=== PATIENT | male | born 1955 | race Hispanic/Latino ===

== ENCOUNTER → 2020-10-13 | Outpatient (CLI) | payer MEDICARE ==
[~2020-10-13] MED LIST: IOPAMIDOL 370 MG/ML 200 ML INFUS..BTL INJ ONE; SODIUM CHLORIDE 0.9% 500ML 500 ML ONE
[2020-10-13 15:32] LABS: CREATININE, SERUM 1.26 mg/dL (0.72-1.25)
== END ==
LOC: CT 14:21
PROVIDERS: ATTEND Urology
DX: R31.0 Gross hematuria (principal)
CPT/HCPCS: 36415; 74178; 82565; 84520; 96360; J7040; Q9967

== ENCOUNTER 2020-11-28 10:52 | Inpatient (IN) | payer MEDICARE ==
[2020-11-24 09:34] LABS: BASOPHILS # (AUTO) 0.1 (0.0-0.1); BASOPHILS % 0.6 % (0.0-1.0); EOSINOPHILS # (AUTO) 0.2 (0.0-0.4); EOSINOPHILS % 1.9 % (0.0-6.0); HEMATOCRIT 42.5 % (38.2-49.6); HEMOGLOBIN 14.4 g/dL (14.0-18.0); LYMPHOCYTES # (AUTO) 1.4 (1.0-3.2); LYMPHOCYTES % 17.6 % (18.0-39.1); MEAN CORPUSCULAR HEMOGLOBIN 29.6 pg (28-32); MEAN CORPUSCULAR HGB CONC 33.9 g/dL (31-35); MEAN CORPUSCULAR VOLUME 87.3 fL (81-99); MONOCYTES # (AUTO) 0.8 (0.2-0.8); MONOCYTES % 10.2 % (4.4-11.3); NEUTROPHILS # (AUTO) 5.5 (2.1-6.9); NEUTROPHILS % 69.2 % (38.7-80.0); PLATELET COUNT 277 x10e3/uL (140-360); RED BLOOD COUNT 4.87 x10e6/uL (4.3-5.7); RED CELL DISTRIBUTION WIDTH 12.7 % (11.7-14.4)
[2020-11-24 09:57] LABS: ALBUMIN 3.7 g/dL (3.5-5.0); ALBUMIN/GLOBULIN RATIO 1.2 (0.8-2.0); ANION GAP 13.8 mmol/L (8-16); CREATININE, SERUM 1.29 mg/dL (0.72-1.25); POTASSIUM 3.8 mmol/L (3.5-5.1)
[2020-11-28] VITALS (7 sets, daily range): BP systolic 140–163; BP diastolic 81–87
[~2020-11-28] VITALS: Ht 172.7 cm; Wt 77.1 kg
[~2020-11-28 10:52] MED LIST changes: +ASPIRIN81 MG PO; +AVODART0.5 MG PO; +BYSTOLIC5 MG PO; +CINNAMON500 MG PO; +FLOMAX0.4 MG PO; +GLIMEPIRIDE2 MG PO; -IOPAMIDOL 370 MG/ML 200 ML INFUS..BTL INJ ONE; +JANUMET XR 1001 EACH PO; +MULTI-VITAMIN1 EACH PO; -SODIUM CHLORIDE 0.9% 500ML 500 ML ONE; +TRIBENZOR 20-51 EACH PO; +VIT C PO
[2020-11-28] MEDS ORDERED: SODIUM CHLORIDE 0.9% 50ML 100 ML ONE (11:13)
[2020-11-28] MEDS ORDERED: TUMERIC PO (11:17)
[2020-11-28] MEDS ORDERED: BLACK ELDERBER1 EACH PO (11:17)
[2020-11-28] MEDS ORDERED: VITAMIN B122500 MCG PO (11:17)
[2020-11-28] MEDS ORDERED: MANNITOL 25% 12.5GM/50ML 50 ML ONE (11:32)
[2020-11-28] MEDS ORDERED: FENTANYL CITRATE/PF 100MCG/2 ML INJ ONE ×2 (12:28→15:35)
[2020-11-28] MEDS ORDERED: MIDAZOLAM HCL 2 MG/2 ML VIAL ONE (12:28)
[2020-11-28] MEDS ORDERED: KETAMINE HCL INJ 50 MG/ML 10 ML VIAL ONE (12:28)
[2020-11-28] MEDS ORDERED: POVIDONE IODINE 0.05% 0.05 % ML PO ONE (12:42)
[2020-11-28] MEDS ORDERED: VECURONIUM BROMIDE FOR INJ 20 MG VIAL ONE (12:42)
[2020-11-28] MEDS ORDERED: ROCURONIUM BROMIDE 10 MG/ML 5ML VIAL IV ONE (12:42)
[2020-11-28] MEDS ORDERED: PROPOFOL IV EMULSION 10 MG/ML 20 ML VIAL ONE (12:42)
[2020-11-28] MEDS ORDERED: SEVOFLURANE INHAL SOLN 250 ML PEN BTL ONE (12:42)
[2020-11-28] MEDS ORDERED: ONDANSETRON HCL INJ 2MG/ML 2ML 2 MG/ML VIAL ONE (12:42)
[2020-11-28] MEDS ORDERED: LIDOCAINE HCL 2% JELLY 5 ML TUBE ONE (12:42)
[2020-11-28] MEDS ORDERED: DEXAMETHASONE SOD PHOS INJ 4 MG/ML VIAL ONE (12:42)
[2020-11-28] MEDS ORDERED: ACETAMINOPHEN 1000 MG/100 ML 100 ML IV ONE (14:10)
[2020-11-28] MEDS ORDERED: ACETAMINOPHEN 1000 MG/100 ML 0 ML IV ONE (14:10)
[2020-11-28] MEDS ORDERED: SUGAMMADEX SODIUM 200 MG/2 ML VIAL IV ONE (14:10)
[2020-11-28] MEDS ORDERED: ONDANSETRON HCL INJ 2MG/ML 2ML 2 MG/ML VIAL IV PRN ×2 (15:15→22:00)
[2020-11-28] MEDS ORDERED: MORPHINE SULFATE 1 MG/ML 30ML PCA IV PRN (15:15)
[2020-11-28] MEDS ORDERED: NALOXONE HCL INJ 0.4 MG/ML AMP IV PRN ×2 (15:15→17:30)
[2020-11-28] MEDS ORDERED: DIPHENHYDRAMINE HCL INJ 50 MG/ML VIAL IM PRN (15:15)
[2020-11-28 15:54] LABS: BASOPHILS # (AUTO) 0.1 (0.0-0.1); BASOPHILS % 0.3 % (0.0-1.0); EOSINOPHILS % 0.1 % (0.0-6.0); HEMATOCRIT 43.6 % (38.2-49.6); HEMOGLOBIN 14.6 g/dL (14.0-18.0); LYMPHOCYTES # (AUTO) 1.4 (1.0-3.2); LYMPHOCYTES % 7.7 % (18.0-39.1); MEAN CORPUSCULAR HEMOGLOBIN 29.4 pg (28-32); MEAN CORPUSCULAR HGB CONC 33.5 g/dL (31-35); MEAN CORPUSCULAR VOLUME 87.9 fL (81-99); MONOCYTES # (AUTO) 0.4 (0.2-0.8); MONOCYTES % 2.1 % (4.4-11.3); NEUTROPHILS # (AUTO) 16.3 (2.1-6.9); NEUTROPHILS % 89.4 % (38.7-80.0); PLATELET COUNT 288 x10e3/uL (140-360); RED BLOOD COUNT 4.96 x10e6/uL (4.3-5.7); RED CELL DISTRIBUTION WIDTH 12.4 % (11.7-14.4)
[2020-11-28 16:12] LABS: ANION GAP 16.6 mmol/L (8-16); CALCIUM 8.4 mg/dL (8.4-10.2); CREATININE, SERUM 1.02 mg/dL (0.72-1.25); POTASSIUM 3.6 mmol/L (3.5-5.1)
[2020-11-28] MEDS: SOD CHL 0.45%/POT CHL 20MEQ 1,000 ML IV SCH (17:04)
[2020-11-28] MEDS: SODIUM CHLORIDE 0.9% 250ML IRRIG IR SCH ×3 (17:13→23:15)
[2020-11-28] MEDS: ACETAMINOPHEN 1000 MG/100 ML IV PRN (17:48)
[2020-11-28] MEDS: HYDROMORPHONE 0.2MG/ML-SOD CHL 30ML PCA SYRINGE IV PRN (18:12)
[2020-11-28] MEDS ORDERED: DEXTROSE 50% SYRINGE 50 ML IV PRN (21:00)
[2020-11-28] MEDS: Cefazolin 1 GM in SODIUM CHLORIDE 0.9% 50ML 50 ML IV SCH (21:45)
[2020-11-28] MEDS ORDERED: HYDRALAZINE HCL 20 MG/ML VIAL IV PRN (22:00)
[2020-11-28] MEDS: INSULIN GLARGINE 100 UNITS/ML VIAL SQ SCH (23:02)
[2020-11-28] MEDS: INSULIN LISPRO 100 UNIT/1 ML 3ML VIAL SQ SCH (23:45)
[2020-11-29] VITALS (17 sets, daily range): BP systolic 124–158; BP diastolic 73–96
[2020-11-29] MEDS: SOD CHL 0.45%/POT CHL 20MEQ 1,000 ML IV SCH ×3 (00:55→16:50)
[2020-11-29] MEDS: SODIUM CHLORIDE 0.9% 250ML IRRIG IR SCH ×3 (03:15→12:13)
[2020-11-29 05:06] LABS: BASOPHILS # (AUTO) 0.1 (0.0-0.1); BASOPHILS % 0.4 % (0.0-1.0); HEMATOCRIT 40.7 % (38.2-49.6); HEMOGLOBIN 13.7 g/dL (14.0-18.0); LYMPHOCYTES # (AUTO) 0.7 (1.0-3.2); MEAN CORPUSCULAR HEMOGLOBIN 29.3 pg (28-32); MEAN CORPUSCULAR HGB CONC 33.7 g/dL (31-35); MONOCYTES # (AUTO) 1.4 (0.2-0.8); MONOCYTES % 10.5 % (4.4-11.3); NEUTROPHILS # (AUTO) 11.1 (2.1-6.9); NEUTROPHILS % 83.6 % (38.7-80.0); PLATELET COUNT 213 x10e3/uL (140-360); RED BLOOD COUNT 4.68 x10e6/uL (4.3-5.7); RED CELL DISTRIBUTION WIDTH 12.5 % (11.7-14.4)
[2020-11-29 05:52] LABS: ANION GAP 14.9 mmol/L (8-16); CALCIUM 8.1 mg/dL (8.4-10.2); CREATININE, SERUM 1.09 mg/dL (0.72-1.25); POTASSIUM 3.9 mmol/L (3.5-5.1)
[2020-11-29] MEDS: Cefazolin 1 GM in SODIUM CHLORIDE 0.9% 50ML 50 ML IV SCH ×3 (05:54→22:00)
[2020-11-29] MEDS: INSULIN LISPRO 100 UNIT/1 ML 3ML VIAL SQ SCH ×4 (05:54→17:33)
[2020-11-29] MEDS: ACETAMINOPHEN 1000 MG/100 ML IV PRN (09:07)
[2020-11-29] MEDS: HYDROMORPHONE 0.2MG/ML-SOD CHL 30ML PCA SYRINGE IV PRN (18:38)
[2020-11-29] MEDS: INSULIN GLARGINE 100 UNITS/ML VIAL SQ SCH (21:00)
[2020-11-30] VITALS (26 sets, daily range): BP systolic 114–160; BP diastolic 68–108
[2020-11-30 05:20] LABS: BASOPHILS % 0.4 % (0.0-1.0); EOSINOPHILS % 0.4 % (0.0-6.0); HEMATOCRIT 36.8 % (38.2-49.6); HEMOGLOBIN 12.4 g/dL (14.0-18.0); LYMPHOCYTES # (AUTO) 0.8 (1.0-3.2); LYMPHOCYTES % 6.8 % (18.0-39.1); MEAN CORPUSCULAR HEMOGLOBIN 29.1 pg (28-32); MEAN CORPUSCULAR HGB CONC 33.7 g/dL (31-35); MEAN CORPUSCULAR VOLUME 86.4 fL (81-99); MONOCYTES # (AUTO) 1.2 (0.2-0.8); MONOCYTES % 10.4 % (4.4-11.3); NEUTROPHILS # (AUTO) 9.1 (2.1-6.9); NEUTROPHILS % 81.5 % (38.7-80.0); PLATELET COUNT 212 x10e3/uL (140-360); RED BLOOD COUNT 4.26 x10e6/uL (4.3-5.7); RED CELL DISTRIBUTION WIDTH 12.4 % (11.7-14.4)
[2020-11-30] MEDS: Cefazolin 1 GM in SODIUM CHLORIDE 0.9% 50ML 50 ML IV SCH ×3 (05:33→21:40)
[2020-11-30] MEDS: INSULIN LISPRO 100 UNIT/1 ML 3ML VIAL SQ SCH ×4 (05:41→18:00)
[2020-11-30] MEDS: SOD CHL 0.45%/POT CHL 20MEQ 1,000 ML IV SCH ×2 (05:42→16:20)
[2020-11-30 06:08] LABS: ANION GAP 12.6 mmol/L (8-16); CALCIUM 7.7 mg/dL (8.4-10.2); CREATININE, SERUM 1.05 mg/dL (0.72-1.25); POTASSIUM 3.6 mmol/L (3.5-5.1)
[2020-11-30] MEDS ORDERED: HYDROMORPHONE 0.2MG/ML-SOD CHL 30ML PCA SYRINGE IV PRN (10:30)
[2020-11-30] MEDS ORDERED: BISACODYL 10 MG SUPP PR ONE (10:30)
[2020-11-30] MEDS ORDERED: METOPROLOL TARTRATE 25 MG TAB PO SCH (16:30)
[2020-11-30] MEDS ORDERED: LYCOPENE10 MG (18:49)
[2020-11-30] MEDS ORDERED: TRIBENZOR 40-11 EAC1 (18:49)
[2020-11-30] MEDS ORDERED: GLUCOSAMINE &1 EACH (18:49)
[2020-11-30] MEDS ORDERED: METOPROLOL SUCC50 MG PO (18:49)
[2020-11-30] MEDS ORDERED: METOPROLOL SUCCINATE 50 MG TAB XL PO ONE (19:30)
[2020-11-30] MEDS: DILTIAZEM HCL 125 ML IV PRN (19:40)
[2020-11-30] MEDS: METOPROLOL TARTRATE 50 MG TAB PO SCH (21:00)
[2020-11-30] MEDS ORDERED: METOPROLOL TARTRATE INJ 1 MG/ML VIAL IV PRN (21:00)
[2020-11-30] MEDS: INSULIN GLARGINE 100 UNITS/ML VIAL SQ SCH (21:00)
[2020-12-01] VITALS (24 sets, daily range): BP systolic 107–149; BP diastolic 61–88
[2020-12-01] MEDS: DILTIAZEM HCL 125 ML IV PRN (03:57)
[2020-12-01] MEDS ORDERED: DILTIAZEM HCL IV 5MG/ML 25 ML VIAL ONE (03:58)
[2020-12-01] MEDS ORDERED: SODIUM CHLORIDE 0.9% 100 ML ONE (03:58)
[2020-12-01 05:36] LABS: BASOPHILS % 0.3 % (0.0-1.0); EOSINOPHILS # (AUTO) 0.2 (0.0-0.4); EOSINOPHILS % 1.5 % (0.0-6.0); HEMATOCRIT 37.2 % (38.2-49.6); HEMOGLOBIN 12.8 g/dL (14.0-18.0); LYMPHOCYTES # (AUTO) 0.7 (1.0-3.2); LYMPHOCYTES % 6.3 % (18.0-39.1); MEAN CORPUSCULAR HEMOGLOBIN 29.8 pg (28-32); MEAN CORPUSCULAR HGB CONC 34.4 g/dL (31-35); MEAN CORPUSCULAR VOLUME 86.7 fL (81-99); MONOCYTES # (AUTO) 1.4 (0.2-0.8); NEUTROPHILS # (AUTO) 9.3 (2.1-6.9); NEUTROPHILS % 79.4 % (38.7-80.0); PLATELET COUNT 205 x10e3/uL (140-360); RED BLOOD COUNT 4.29 x10e6/uL (4.3-5.7); RED CELL DISTRIBUTION WIDTH 12.2 % (11.7-14.4)
[2020-12-01] MEDS: Cefazolin 1 GM in SODIUM CHLORIDE 0.9% 50ML 50 ML IV SCH ×3 (06:00→21:14)
[2020-12-01] MEDS: SOD CHL 0.45%/POT CHL 20MEQ 1,000 ML IV SCH (06:00)
[2020-12-01] MEDS: INSULIN LISPRO 100 UNIT/1 ML 3ML VIAL SQ SCH ×5 (06:00→21:15)
[2020-12-01 06:10] LABS: ALBUMIN 2.6 g/dL (3.5-5.0); ALBUMIN/GLOBULIN RATIO 0.8 (0.8-2.0); ANION GAP 18.8 mmol/L (8-16); CALCIUM 7.9 mg/dL (8.4-10.2); CREATININE, SERUM 0.97 mg/dL (0.72-1.25); MAGNESIUM 1.5 MG/DL (1.3-2.1); PHOSPHORUS 1.8 MG/DL (2.3-4.7); POTASSIUM 3.8 mmol/L (3.5-5.1)
[2020-12-01] MEDS ORDERED: METOPROLOL SUCCINATE 50 MG TAB XL PO SCH (09:00)
[2020-12-01] MEDS ORDERED: AMLODIPINE BESYLATE 10 MG TAB PO SCH (09:00)
[2020-12-01] MEDS ORDERED: HYDROCODONE/APAP 10MG-325MG TAB PO PRN (09:00)
[2020-12-01] MEDS ORDERED: HYDROMORPHONE 1MG/1ML INJ IV PRN (09:00)
[2020-12-01] MEDS ORDERED: HYDROCHLOROTHIAZIDE 25 MG TAB PO SCH (09:00)
[2020-12-01] MEDS: SENNA-S TABLET PO SCH ×2 (09:00→15:26)
[2020-12-01] MEDS ORDERED: OLMESARTAN 20 MG TAB PO SCH (09:00)
[2020-12-01] MEDS: METOPROLOL TARTRATE 50 MG TAB PO SCH ×2 (09:13→21:14)
[2020-12-01] MEDS ORDERED: ACETAMINOPHEN/CODEINE 300MG - 30MG TAB PO PRN (15:30)
[2020-12-01] MEDS: INSULIN GLARGINE 100 UNITS/ML VIAL SQ SCH (21:15)
[2020-12-02] VITALS (27 sets, daily range): BP systolic 114–150; BP diastolic 58–95
[2020-12-02 05:04] LABS: BASOPHILS % 0.3 % (0.0-1.0); EOSINOPHILS # (AUTO) 0.3 (0.0-0.4); EOSINOPHILS % 3.5 % (0.0-6.0); HEMATOCRIT 33.1 % (38.2-49.6); HEMOGLOBIN 11.4 g/dL (14.0-18.0); LYMPHOCYTES % 10.8 % (18.0-39.1); MEAN CORPUSCULAR HEMOGLOBIN 29.7 pg (28-32); MEAN CORPUSCULAR HGB CONC 34.4 g/dL (31-35); MEAN CORPUSCULAR VOLUME 86.2 fL (81-99); MONOCYTES # (AUTO) 1.1 (0.2-0.8); MONOCYTES % 12.1 % (4.4-11.3); NEUTROPHILS # (AUTO) 6.5 (2.1-6.9); NEUTROPHILS % 72.8 % (38.7-80.0); PLATELET COUNT 222 x10e3/uL (140-360); RED BLOOD COUNT 3.84 x10e6/uL (4.3-5.7); RED CELL DISTRIBUTION WIDTH 12.4 % (11.7-14.4)
[2020-12-02 05:36] LABS: ANION GAP 11.6 mmol/L (8-16); CALCIUM 8.2 mg/dL (8.4-10.2); CREATININE, SERUM 0.94 mg/dL (0.72-1.25); POTASSIUM 3.6 mmol/L (3.5-5.1)
[2020-12-02 05:55] LABS: MAGNESIUM 1.6 MG/DL (1.3-2.1); PHOSPHORUS 1.6 MG/DL (2.3-4.7)
[2020-12-02] MEDS: Cefazolin 1 GM in SODIUM CHLORIDE 0.9% 50ML 50 ML IV SCH ×3 (06:14→20:45)
[2020-12-02] MEDS: DILTIAZEM HCL 125 ML IV PRN (07:15)
[2020-12-02] MEDS: INSULIN LISPRO 100 UNIT/1 ML 3ML VIAL SQ SCH ×4 (07:30→20:44)
[2020-12-02] MEDS ORDERED: DILTIAZEM HCL ER 120 MG CAP PO ONE (07:30)
[2020-12-02] MEDS ORDERED: DILTIAZEM HCL IV 5MG/ML 25 ML VIAL ONE (07:31)
[2020-12-02] MEDS ORDERED: SODIUM CHLORIDE 0.9% 100 ML ONE (07:32)
[2020-12-02] MEDS: PANTOPRAZOLE SOD 40 MG TABEC PO SCH (07:56)
[2020-12-02] MEDS: SENNA-S TABLET PO SCH ×2 (08:01→17:00)
[2020-12-02] MEDS: METOPROLOL TARTRATE 50 MG TAB PO SCH ×2 (08:01→20:45)
[2020-12-02] MEDS: BISACODYL 10 MG SUPP PR ONE ×2 (13:15→13:29)
[2020-12-02] MEDS ORDERED: BISACODYL 10 MG SUPP PR ONE (14:00)
[2020-12-02] MEDS ORDERED: LORAZEPAM INJ 2 MG/ML VIAL IV ONE (20:15)
[2020-12-02] MEDS ORDERED: MORPHINE SULFATE INJ 4 MG/ML INJ 1ML IV ONE (20:15)
[2020-12-02] MEDS: INSULIN GLARGINE 100 UNITS/ML VIAL SQ SCH (20:44)
[2020-12-02] MEDS ORDERED: ENOXAPARIN INJ 80 MG/0.8 ML SYR SC ONE (22:16)
[2020-12-03] VITALS (21 sets, daily range): BP systolic 97–144; BP diastolic 51–84
[2020-12-03] MEDS: Cefazolin 1 GM in SODIUM CHLORIDE 0.9% 50ML 50 ML IV SCH ×3 (06:02→21:00)
[2020-12-03] MEDS: INSULIN LISPRO 100 UNIT/1 ML 3ML VIAL SQ SCH ×4 (07:30→23:04)
[2020-12-03] MEDS: PANTOPRAZOLE SOD 40 MG TABEC PO SCH (08:27)
[2020-12-03] MEDS: DILTIAZEM HCL CR 120MG TAB PO SCH (08:28)
[2020-12-03] MEDS: METOPROLOL TARTRATE 50 MG TAB PO SCH ×2 (08:29→20:59)
[2020-12-03] MEDS: SENNA-S TABLET PO SCH ×2 (08:29→17:03)
[2020-12-03] MEDS ORDERED: ENOXAPARIN SOD INJ 40 MG/0.4 ML SYR SC SCH (11:00)
[2020-12-03] MEDS ORDERED: BISACODYL 10 MG SUPP PR ONE (11:00)
[2020-12-03] MEDS ORDERED: WARFARIN SOD 2 MG TAB PO SCH (17:00)
[2020-12-03] MEDS ORDERED: ENOXAPARIN SOD INJ 40 MG/0.4 ML SYR SC ONE (18:00)
[2020-12-03] MEDS ORDERED: SODIUM CHLORIDE 0.9% 250ML 250 ML ONE (20:45)
[2020-12-03] MEDS: INSULIN GLARGINE 100 UNITS/ML VIAL SQ SCH (23:04)
[2020-12-04] VITALS: BP 131/73
[2020-12-04 04:00] VITALS: BP 142/79
[2020-12-04] MEDS: Cefazolin 1 GM in SODIUM CHLORIDE 0.9% 50ML 50 ML IV SCH (05:40)
[2020-12-04 05:49] LABS: BASOPHILS # (AUTO) 0.1 (0.0-0.1); BASOPHILS % 0.8 % (0.0-1.0); EOSINOPHILS # (AUTO) 0.4 (0.0-0.4); EOSINOPHILS % 4.9 % (0.0-6.0); HEMATOCRIT 31.6 % (38.2-49.6); HEMOGLOBIN 10.8 g/dL (14.0-18.0); MEAN CORPUSCULAR HEMOGLOBIN 29.6 pg (28-32); MEAN CORPUSCULAR HGB CONC 34.2 g/dL (31-35); MEAN CORPUSCULAR VOLUME 86.6 fL (81-99); MONOCYTES # (AUTO) 1.1 (0.2-0.8); MONOCYTES % 13.2 % (4.4-11.3); NEUTROPHILS # (AUTO) 5.4 (2.1-6.9); NEUTROPHILS % 67.6 % (38.7-80.0); PLATELET COUNT 283 x10e3/uL (140-360); RED BLOOD COUNT 3.65 x10e6/uL (4.3-5.7); RED CELL DISTRIBUTION WIDTH 12.5 % (11.7-14.4)
[2020-12-04 06:10] LABS: ANION GAP 10.4 mmol/L (8-16); CALCIUM 8.3 mg/dL (8.4-10.2); CREATININE, SERUM 0.85 mg/dL (0.72-1.25); POTASSIUM 3.4 mmol/L (3.5-5.1)
[2020-12-04] MEDS: INSULIN LISPRO 100 UNIT/1 ML 3ML VIAL SQ SCH (07:30)
[2020-12-04] MEDS: DILTIAZEM HCL CR 120MG TAB PO SCH (08:23)
[2020-12-04] MEDS: METOPROLOL TARTRATE 50 MG TAB PO SCH (08:23)
[2020-12-04] MEDS: PANTOPRAZOLE SOD 40 MG TABEC PO SCH (08:23)
[2020-12-04] MEDS: SENNA-S TABLET PO SCH (08:23)
[2020-12-04 08:56] VITALS: BP 152/85
[2020-12-04 09:00] VITALS: BP 152/85
[2020-12-04] MEDS ORDERED: POTASSIUM CHLORIDE 10MEQ EA PO ONE (10:00)
[2020-12-04] MEDS ORDERED: OMEPRAZOLE40 MG PO (12:01)
[2020-12-04] MEDS ORDERED: ONDANSETRON ODT4 MG PO (12:05)
[2020-12-04] MEDS ORDERED: KEFLEX125 MG/5 M PO (12:06)
[2020-12-04] MEDS ORDERED: [UNRECOGNIZED DRUG - OTHER] (12:07)
[2020-12-04] MEDS ORDERED: atarax PO (12:10)
[2020-12-04] MEDS ORDERED: NEURONTIN300 MG PO (12:11)
[2020-12-04] MEDS ORDERED: ULTRACET TABLE1 EACH PO (12:13)
[2020-12-04] MEDS ORDERED: METOPROLOL SUCC50 MG PO (12:16)
[2020-12-04] MEDS ORDERED: WARFARIN SODIUM3 MG PO (12:17)
[2020-12-04] MEDS ORDERED: DILTIAZEM 24HR180 MG PO (12:20)
== END 2020-12-04 13:15 | disposition home or self-care (01) | DRG 661 ==
LOC: OR 10:52 → PACU V 15:37 → ICU 16:03 → MED/SURG2 12-03 17:54
PROVIDERS: ADMIT Internal Medicine; ATTEND Internal Medicine
PROC: 0TB00ZZ Excision of Right Kidney, Open Approach (ICD-10-PCS; principal; 2020-11-28 13:00)
DX: N28.89 Other specified disorders of kidney and ureter (principal); I48.0 Paroxysmal atrial fibrillation; E11.9 Type 2 diabetes mellitus without complications; I10 Essential (primary) hypertension; E78.5 Hyperlipidemia, unspecified; Z20.822 Contact with and (suspected) exposure to COVID-19; N40.0 Benign prostatic hyperplasia without lower urinary tract symptoms
CPT/HCPCS: 36415; 71045; 71046; 80048; 80053; 82948; 83735; 84100; 85025; 86850; 86900; 86920; 88305; 88307; 88329; 88331; 93005; 93306; 96372; 97139; J0690; J1100; J1650; J1815; J2001; J2150; J2250; J2270; J2405; J3010; J7050; U0002

== ENCOUNTER → 2022-09-07 | Outpatient (CLI) | payer MEDICARE ==
[~2022-09-07] MED LIST changes: +BLACK ELDERBER1 EACH PO; +DILTIAZEM 24HR180 MG PO; +GLUCOSAMINE &1 EACH; +KEFLEX125 MG/5 M PO; +LYCOPENE10 MG; +METOPROLOL SUCC50 MG PO; +NEURONTIN300 MG PO; +OMEPRAZOLE40 MG PO; +ONDANSETRON ODT4 MG PO; +TRIBENZOR 40-11 EAC1; +TUMERIC PO; +ULTRACET TABLE1 EACH PO; +VITAMIN B122500 MCG PO; +WARFARIN SODIUM3 MG PO; +[UNRECOGNIZED DRUG - OTHER]; +atarax PO
== END ==
LOC: US 14:04
PROVIDERS: ATTEND Urology
DX: D41.01 Neoplasm of uncertain behavior of right kidney (principal); N39.0 Urinary tract infection, site not specified; R31.0 Gross hematuria
CPT/HCPCS: 76770

== ENCOUNTER 2023-09-13 10:10 | Inpatient (IN) | payer MEDICARE ==
[~2023-09-13] VITALS: Ht 172.7 cm; Wt 77.1 kg
[2023-09-13] MEDS: SODIUM CHLORIDE 0.9% 1000ML 1,000 ML IV ONE (10:55)
[2023-09-13 11:03] LABS: BASOPHILS % 0.3 % (0.0-1.0); EOSINOPHILS % 0.6 % (0.0-6.0); HEMATOCRIT 39.6 % (38.2-49.6); LYMPHOCYTES # (AUTO) 0.7 (1.0-3.2); LYMPHOCYTES % 10.5 % (18.0-39.1); MEAN CORPUSCULAR HEMOGLOBIN 30.5 pg (28-32); MEAN CORPUSCULAR HGB CONC 35.4 g/dL (31-35); MEAN CORPUSCULAR VOLUME 86.3 fL (81-99); MONOCYTES # (AUTO) 0.6 (0.2-0.8); MONOCYTES % 9.4 % (4.4-11.3); NEUTROPHILS # (AUTO) 5.3 (2.1-6.9); NEUTROPHILS % 79.1 % (38.7-80.0); PLATELET COUNT 243 x10e3/uL (140-360); RED BLOOD COUNT 4.59 x10e6/uL (4.3-5.7); RED CELL DISTRIBUTION WIDTH 13.2 % (11.7-14.4); WHITE BLOOD COUNT 6.73 x10e3/uL (4.8-10.8)
[2023-09-13 11:20] LABS: ALBUMIN 4.1 g/dL (3.5-5.0); ALBUMIN/GLOBULIN RATIO 1.2 (0.8-2.0); ANION GAP 17.3 mmol/L (8-16); BILIRUBIN,TOTAL 0.7 mg/dL (0.2-1.2); CALCIUM 9.9 mg/dL (8.4-10.2); CREATININE, SERUM 1.6 mg/dL (0.72-1.25); TOTAL PROTEIN 7.5 g/dL (6.5-8.1)
[2023-09-13 11:21] LABS: POTASSIUM 3.3 mmol/L (3.5-5.1)
[2023-09-13 11:23] LABS: INR 1.29; PROTHROMBIN TIME 16.3 seconds (11.9-14.5)
[2023-09-13 15:03] LABS: BILIRUBIN,URINE NEGATIVE (NEGATIVE); CLARITY,URINE TURBID (CLEAR); COLOR,URINE RED (YELLOW); GLUCOSE, URINE 500 (NEGATIVE); KETONES,URINE NEGATIVE (NEGATIVE); LEUKOCYTE ESTERASE ,URINE NEGATIVE (NEGATIVE); NITRITE,URINE NEGATIVE (NEGATIVE); PH,URINE 6 (5 - 7); PROTEIN,URINE DIPSTICK >=300 (NEGATIVE); URINE UROBILINOGEN 0.2 mg/dL (0.2 - 1); WBC,URINE (MAN) 0-5 /HPF (0-5)
[2023-09-13 15:04] LABS: BACTERIA,URINE FEW /HPF; EPITHELIAL CELLS,URINE FEW /LPF; RBC,URINE >50 /HPF (0-5)
[2023-09-13] MEDS ORDERED: ONDANSETRON HCL INJ 2MG/ML 2ML 2 MG/ML VIAL IV PRN (16:00)
[2023-09-13] MEDS ORDERED: LIDOCAINE JELLY 2% 10ML URO-JET ONE (16:26)
[2023-09-13] MEDS: LIDOCAINE JELLY 2% 10ML URO-JET TOP ONE (16:52)
[2023-09-13] MEDS: SODIUM CHLORIDE 0.9% 1000ML 1,000 ML IV SCH (16:58)
[2023-09-13 22:00] VITALS: BP 122/71; PULSE 93; RESP 18; TEMP 98.7; O2SAT 97
[2023-09-13] MEDS ORDERED: HYDROCHLOROTHIA25 MG (22:07)
[2023-09-13] MEDS ORDERED: AMLODIPINE BESY10 MG PO (22:07)
[2023-09-13] MEDS ORDERED: DOXAZOSIN MESYLA2 MG PO (22:07)
[2023-09-13] MEDS ORDERED: BENICAR20 MG PO (22:07)
[2023-09-13] MEDS ORDERED: LANTUS 3ML100 UNITS/ SC (22:07)
[2023-09-13] MEDS ORDERED: CRESTOR5 MG (22:07)
[2023-09-13] MEDS ORDERED: DUTASTERIDE-TA1 EACH PO (22:07)
[2023-09-13] MEDS ORDERED: XARELTO20 MG PO (22:07)
[2023-09-13] MEDS ORDERED: METFORMIN HCL500 MG PO (22:07)
[2023-09-13] MEDS ORDERED: GLYXAMBI 25 MG1 EACH (22:07)
[2023-09-14] VITALS (10 sets, daily range): BP systolic 114–147; BP diastolic 67–78; PULSE 85–106; RESP 18–20; TEMP 97–98.9; O2SAT 91–97
[2023-09-14 06:43] LABS: BASOPHILS % 0.5 % (0.0-1.0); EOSINOPHILS # (AUTO) 0.1 (0.0-0.4); EOSINOPHILS % 1.4 % (0.0-6.0); HEMATOCRIT 32.5 % (38.2-49.6); HEMOGLOBIN 11.1 g/dL (14.0-18.0); LYMPHOCYTES # (AUTO) 0.7 (1.0-3.2); LYMPHOCYTES % 8.4 % (18.0-39.1); MEAN CORPUSCULAR HEMOGLOBIN 29.8 pg (28-32); MEAN CORPUSCULAR HGB CONC 34.2 g/dL (31-35); MEAN CORPUSCULAR VOLUME 87.4 fL (81-99); MONOCYTES % 12.8 % (4.4-11.3); NEUTROPHILS # (AUTO) 6.2 (2.1-6.9); NEUTROPHILS % 76.5 % (38.7-80.0); PLATELET COUNT 220 x10e3/uL (140-360); RED BLOOD COUNT 3.72 x10e6/uL (4.3-5.7); RED CELL DISTRIBUTION WIDTH 13.2 % (11.7-14.4); WHITE BLOOD COUNT 8.11 x10e3/uL (4.8-10.8)
[2023-09-14 07:28] LABS: ALBUMIN 3.2 g/dL (3.5-5.0); ALBUMIN/GLOBULIN RATIO 1.3 (0.8-2.0); ANION GAP 14.1 mmol/L (8-16); BILIRUBIN,TOTAL 0.4 mg/dL (0.2-1.2); CALCIUM 8.7 mg/dL (8.4-10.2); CREATININE, SERUM 1.33 mg/dL (0.72-1.25); TOTAL PROTEIN 5.7 g/dL (6.5-8.1)
[2023-09-14] MEDS ORDERED: ALBUTEROL/IPRATROPIUM 3 ML NEB NEB PRN (07:30)
[2023-09-14] MEDS ORDERED: SIMETHICONE 80 MG CHEW PO PRN (07:30)
[2023-09-14] MEDS ORDERED: METOPROLOL TARTRATE INJ 1 MG/ML VIAL IV PRN (07:30)
[2023-09-14 07:34] LABS: POTASSIUM 3.1 mmol/L (3.5-5.1)
[2023-09-14 08:28] LABS: CHOL/HDL RATIO 6.7 (3.9-4.7)
[2023-09-14] MEDS: DOXAZOSIN MESYLATE 2 MG TAB PO SCH (08:36)
[2023-09-14] MEDS: MULTIVITAMINS/MINERALS TAB PO SCH (08:37)
[2023-09-14] MEDS: AMLODIPINE BESYLATE 10 MG TAB PO SCH (08:37)
[2023-09-14] MEDS: METOPROLOL SUCCINATE 50 MG TAB XL PO SCH (08:37)
[2023-09-14] MEDS: POTASSIUM CHLORIDE 20 MEQ TAB CR PO ONE (09:30)
[2023-09-14] MEDS: OXYBUTYNIN CHLORIDE 5 MG TAB PO PRN (17:48)
[2023-09-14] MEDS: SIMVASTATIN 20 MG TAB PO SCH (22:12)
[2023-09-15] VITALS (10 sets, daily range): BP systolic 102–126; BP diastolic 64–76; PULSE 75–95; RESP 16–19; TEMP 97.5–100.4; O2SAT 92–100
[2023-09-15] MEDS: ACETAMINOPHEN 325 MG TAB PO PRN (00:01)
[2023-09-15 07:24] LABS: BASOPHILS % 0.4 % (0.0-1.0); EOSINOPHILS # (AUTO) 0.2 (0.0-0.4); EOSINOPHILS % 2.1 % (0.0-6.0); HEMATOCRIT 32.1 % (38.2-49.6); HEMOGLOBIN 10.5 g/dL (14.0-18.0); LYMPHOCYTES # (AUTO) 1.2 (1.0-3.2); LYMPHOCYTES % 13.3 % (18.0-39.1); MEAN CORPUSCULAR HEMOGLOBIN 29.3 pg (28-32); MEAN CORPUSCULAR HGB CONC 32.7 g/dL (31-35); MEAN CORPUSCULAR VOLUME 89.7 fL (81-99); MONOCYTES # (AUTO) 1.4 (0.2-0.8); MONOCYTES % 14.8 % (4.4-11.3); NEUTROPHILS # (AUTO) 6.4 (2.1-6.9); NEUTROPHILS % 68.7 % (38.7-80.0); PLATELET COUNT 208 x10e3/uL (140-360); RED BLOOD COUNT 3.58 x10e6/uL (4.3-5.7); RED CELL DISTRIBUTION WIDTH 12.6 % (11.7-14.4); WHITE BLOOD COUNT 9.35 x10e3/uL (4.8-10.8)
[2023-09-15 07:35] LABS: ANION GAP 10.5 mmol/L (8-16); CALCIUM 8.3 mg/dL (8.4-10.2); CREATININE, SERUM 1.07 mg/dL (0.72-1.25); POTASSIUM 3.5 mmol/L (3.5-5.1)
[2023-09-15] MEDS ORDERED: DEXTROSE 50% SYRINGE 50 ML IV PRN (13:15)
[2023-09-15] MEDS: INSULIN REGULAR, HUMAN 100 UNIT/1 ML SQ SCH (13:34)
[2023-09-15] MEDS: INSULIN GLARGINE 100 UNITS/ML VIAL SQ SCH (14:00)
[2023-09-15] MEDS: MELATONIN 3 MG TAB PO PRN (22:03)
[2023-09-16] VITALS (10 sets, daily range): BP systolic 117–144; BP diastolic 67–83; PULSE 79–97; RESP 16–20; TEMP 98.2–100.7; O2SAT 91–99
[2023-09-16 06:29] LABS: BASOPHILS # (AUTO) 0.1 (0.0-0.1); BASOPHILS % 0.4 % (0.0-1.0); EOSINOPHILS # (AUTO) 0.1 (0.0-0.4); EOSINOPHILS % 1.1 % (0.0-6.0); HEMATOCRIT 32.1 % (38.2-49.6); HEMOGLOBIN 10.8 g/dL (14.0-18.0); LYMPHOCYTES % 8.9 % (18.0-39.1); MEAN CORPUSCULAR HEMOGLOBIN 29.2 pg (28-32); MEAN CORPUSCULAR HGB CONC 33.6 g/dL (31-35); MEAN CORPUSCULAR VOLUME 86.8 fL (81-99); MONOCYTES # (AUTO) 1.1 (0.2-0.8); MONOCYTES % 9.8 % (4.4-11.3); NEUTROPHILS # (AUTO) 8.9 (2.1-6.9); NEUTROPHILS % 79.3 % (38.7-80.0); PLATELET COUNT 212 x10e3/uL (140-360); RED CELL DISTRIBUTION WIDTH 12.6 % (11.7-14.4); WHITE BLOOD COUNT 11.16 x10e3/uL (4.8-10.8)
[2023-09-16 07:19] LABS: ANION GAP 12.4 mmol/L (8-16); CREATININE, SERUM 0.94 mg/dL (0.72-1.25)
[2023-09-16 07:25] LABS: POTASSIUM 3.4 mmol/L (3.5-5.1)
[2023-09-16] MEDS: FENOFIBRATE 145 MG TAB PO SCH (08:29)
[2023-09-16] MEDS ORDERED: ONDANSETRON HCL 4 MG ORAL DISINTEGRATING TAB PO PRN (11:30)
[2023-09-17] VITALS (8 sets, daily range): BP systolic 102–145; BP diastolic 65–79; PULSE 69–113; RESP 16–20; TEMP 97.6–100.4; O2SAT 90–100
[2023-09-17] MEDS ORDERED: IOPAMIDOL 610MG/1ML 300 MG/ML VIAL IV ONE (06:22)
[2023-09-17] MEDS ORDERED: KETAMINE 50MG/5ML SYR ONE ×2 (08:38→16:12)
[2023-09-17] MEDS ORDERED: HYDROMORPHONE 1MG/1ML INJ ONE (08:39)
[2023-09-17 10:21] LABS: BASOPHILS % 0.4 % (0.0-1.0); EOSINOPHILS # (AUTO) 0.2 (0.0-0.4); EOSINOPHILS % 1.7 % (0.0-6.0); HEMATOCRIT 29.2 % (38.2-49.6); HEMOGLOBIN 9.8 g/dL (14.0-18.0); LYMPHOCYTES # (AUTO) 0.9 (1.0-3.2); LYMPHOCYTES % 9.6 % (18.0-39.1); MEAN CORPUSCULAR HEMOGLOBIN 29.7 pg (28-32); MEAN CORPUSCULAR HGB CONC 33.6 g/dL (31-35); MEAN CORPUSCULAR VOLUME 88.5 fL (81-99); MONOCYTES # (AUTO) 1.1 (0.2-0.8); MONOCYTES % 11.7 % (4.4-11.3); NEUTROPHILS # (AUTO) 6.9 (2.1-6.9); NEUTROPHILS % 76.3 % (38.7-80.0); PLATELET COUNT 225 x10e3/uL (140-360); RED CELL DISTRIBUTION WIDTH 13.2 % (11.7-14.4); WHITE BLOOD COUNT 8.98 x10e3/uL (4.8-10.8)
[2023-09-17 10:47] LABS: ANION GAP 11.8 mmol/L (8-16); CALCIUM 7.6 mg/dL (8.4-10.2); CREATININE, SERUM 1.08 mg/dL (0.72-1.25); POTASSIUM 3.8 mmol/L (3.5-5.1)
[2023-09-17] MEDS ORDERED: PROPOFOL IV EMULSION 10 MG/ML 20 ML VIAL ONE (13:46)
[2023-09-17] MEDS ORDERED: LIDOCAINE HCL 2% LOCAL INJ 5 ML SDV VIAL INJ ONE (13:46)
[2023-09-17] MEDS ORDERED: ROCURONIUM BROMIDE 10 MG/ML 5ML VIAL IV ONE (13:46)
[2023-09-17] MEDS ORDERED: ONDANSETRON HCL INJ 2MG/ML 2ML 2 MG/ML VIAL ONE (13:46)
[2023-09-17] MEDS ORDERED: PHENYLEPHRINE HCL 1% 10 MG/ML VIAL ONE (13:46)
[2023-09-17] MEDS ORDERED: GENTAMICIN SULFATE 40 MG/ML 2 ML VIAL ONE (13:46)
[2023-09-17] MEDS ORDERED: GLYCOPYRROLATE INJ 0.2 MG/ML VIAL ONE (13:46)
[2023-09-17] MEDS ORDERED: NEOSTIGMINE 1 MG/ML 10ML VIAL ONE (13:46)
[2023-09-17] MEDS ORDERED: SEVOFLURANE INHAL SOLN 250 ML PEN BTL ONE (13:46)
[2023-09-17] MEDS ORDERED: FENTANYL CITRATE/PF 100MCG/2 ML INJ ONE (16:12)
[2023-09-17] MEDS ORDERED: MIDAZOLAM HCL 2 MG/2 ML VIAL ONE (16:12)
[2023-09-18] VITALS (9 sets, daily range): BP systolic 125–155; BP diastolic 68–95; PULSE 80–102; RESP 17–20; TEMP 97.9–99.5; O2SAT 93–98
[2023-09-18 11:14] LABS: HEMATOCRIT 28.6 % (38.2-49.6)
[2023-09-18 11:36] LABS: ANION GAP 12.8 mmol/L (8-16); CALCIUM 8.1 mg/dL (8.4-10.2); CREATININE, SERUM 1.15 mg/dL (0.72-1.25); POTASSIUM 3.8 mmol/L (3.5-5.1)
[2023-09-19] VITALS (10 sets, daily range): BP systolic 119–135; BP diastolic 66–78; PULSE 80–91; RESP 17–20; TEMP 98.1–98.8; O2SAT 95–96
[2023-09-19] MEDS: INSULIN GLARGINE 100 UNITS/ML VIAL SQ ONE (13:35)
[2023-09-20] VITALS: BP 132/77; PULSE 81; RESP 18; TEMP 98.5; O2SAT 96
[2023-09-20 04:00] VITALS: BP 138/78; PULSE 80; RESP 17; TEMP 98.2; O2SAT 100
[2023-09-20 07:13] VITALS: PULSE 89; RESP 18; O2SAT 97
[2023-09-20] MEDS ORDERED: FENOFIBRATE145 MG PO (08:30)
[2023-09-20] MEDS ORDERED: CEPHALEXIN500 MG PO (08:30)
[2023-09-20] MEDS: INSULIN GLARGINE 100 UNITS/ML VIAL SQ SCH (08:32)
[2023-09-20 08:44] VITALS: BP 131/93; PULSE 93; RESP 18; TEMP 98.4; O2SAT 100
[2023-09-20 12:13] VITALS: BP 129/74; PULSE 81; RESP 18; TEMP 98.2; O2SAT 97
== END 2023-09-20 14:08 | disposition home or self-care (01) | DRG 713 ==
LOC: ER 10:21 → ERHOLD 16:00 → MED/SURG3 19:57 → OBSVTOIN 09-15 13:30
PROVIDERS: ADMIT Internal Medicine; ATTEND Internal Medicine
PROC: 0T2BX0Z Change Drainage Device in Bladder, External Approach (ICD-10-PCS; principal; 2023-09-13)
PROC: 0V508ZZ Destruction of Prostate, Via Natural or Artificial Opening Endoscopic (ICD-10-PCS; 2023-09-17)
PROC: BT161ZZ Fluoroscopy of Right Ureter using Low Osmolar Contrast (ICD-10-PCS; 2023-09-17)
PROC: BT171ZZ Fluoroscopy of Left Ureter using Low Osmolar Contrast (ICD-10-PCS; 2023-09-17)
DX: N40.1 Benign prostatic hyperplasia with lower urinary tract symptoms (principal); D68.9 Coagulation defect, unspecified; N17.9 Acute kidney failure, unspecified; R31.9 Hematuria, unspecified; I10 Essential (primary) hypertension; E11.9 Type 2 diabetes mellitus without complications; D64.9 Anemia, unspecified; I48.0 Paroxysmal atrial fibrillation; R31.0 Gross hematuria; Z11.52 Encounter for screening for COVID-19; Z79.01 Long term (current) use of anticoagulants; Z79.84 Long term (current) use of oral hypoglycemic drugs; Z79.4 Long term (current) use of insulin; Z90.5 Acquired absence of kidney; Z90.79 Acquired absence of other genital organ(s); Z86.16 Personal history of COVID-19; Z88.8 Allergy status to other drugs, medicaments and biological substances
CPT/HCPCS: 36415; 51703; 74178; 74420; 80048; 80053; 80061; 81001; 82948; 83036; 85014; 85018; 85025; 85610; 85730; 88304; 94799; 96372; 99284; C1758; G0378; J0696; J1170; J1580; J1815; J2001; J2250; J2371; J2405; J2710; J7030; U0002